=== PATIENT | female | born 1975 | race Caucasian/White ===

== ENCOUNTER → 2018-02-14 | Day surgery (SDC) | payer OTHER ==
[~2018-02-14] VITALS: Ht 157.5 cm; Wt 79.1 kg
[~2018-02-14] MED LIST: ACETAMINOPHEN 1000 MG/100 ML 100 ML IV ONE; ACETAMINOPHEN/HYDROcodone 325 MG/5 MG TAB PO PRN; ATOR10TA15 PO; BUPIVACAINE HCL PF 0.25% 30 ML VIAL ONE; CHLORHEXIDINE GLUCONATE 2 % 1 PACK (2 CLOTHS) TOPICAL PRN; DEXAMETHASONE SOD PHOS 4 MG/ML VIAL IV ONE; DO NOT ADM ANY ANTICOAGULANT DRUGS PRN; ESMOLOL HCL 100 MG/10 ML VIAL IV ONE; GENTAMICIN SULFATE 80 MG/2 ML VIAL ONE; KETOROLAC TROMETHAMINE 30 MG/ML (IVP) VIAL IV PUSH ONE; LACTATED RINGER'S 1000 ML INJ 1,000 ML IV ONE; LACTATED RINGER'S 1000 ML IV PRN; LIDOCAINE HCL 0.5% PF 50 ML VIAL ONE; LIDOCAINE HCL 1% PF 5 ML SYRINGE OTHER ONE; METOPROLOL TARTRATE 25 MG TAB PO PRN; MIDAZOLAM HCL 2 MG/2 ML VIAL ONE; MORPHINE SULFATE 4 MG/ML INJ IV PUSH PRN; NORC5TAB PO; ONDANSETRON HCL 4 MG/2 ML VIAL IV ONE; ONDANSETRON ODT 4 MG TAB ONE; ONDANSETRON ODT 4 MG TAB SL ONE; POVIDONE IODINE 5% (ANTISEPSIS KIT) 4 APPLICATIONS EACH NARE PRN; POVIDONE IODINE 7.5% SCRUB 118 ML BOTTLE TOPICAL SCH; PROMETHAZINE INJ 25 MG/ML VIAL ONE; PROPOFOL 200 MG/20 ML AMP IV ONE; SODIUM CHLORID 0.9% 500 ML IV PRN; SODIUM CHLORIDE 0.9% FLUSH 10 ML FLUSH IV FLUSH PRN; SODIUM CHLORIDE 0.9% FLUSH 10 ML FLUSH IV FLUSH SCH; ceFAZolin 2 GM PREMIX 50 ML IV SCH; ePHEDrine/NS 25 MG/5 ML SYRINGE IV ONE
--- NOTE | 2018-02-14 10:58 | PD.OP ---
cc: Craig Addison MD Operative Report Date of Surgery: Feb 14, 2018 Preoperative Diagnosis: Left hand carpal tunnel syndrome Postoperative Diagnosis: Same Procedure: Left hand open carpal tunnel release Anesthesia: General Surgeon: Craig Addison Machine Operator Packaging(s): CRUZITO Dominguez The surgical procedure was assisted by my Advanced Registered Nurse Practitioner. My PIECE WORKER presence was necessary throughout this case for the manipulation and positioning of the surgical extremity. My PIECE WORKER was assisting me throughout the duration of this procedure. The skill set of an Advance Registered Nurse Practitioner was medically necessary to complete this procedure. During the surgical case, the surgical instrument maker was working at the back table and the Advance Registered Nurse Practitioner was directly assisting me. Operation and Findings: Tourniquet time: 4 minutes at 250 mmHg of pressure Estimated blood loss: 2 cc The patient received intravenous Ancef. After the appropriate anesthesia was administered, the patient's arm was prepped and draped in the usual sterile fashion. Local anesthetic was given without epinephrine, and the arm was exsanguinated. The tourniquet was raised to 250 mmHg of pressure. We made a standard incision over the volar aspect of the hand. We dissected through the palmar fascia exposing the deep transverse ligament. We incised the mid aspect of the ligament. We then used a Taylor elevator between the ligament and the median nerve to protect the nerve. We incised the remaining portion of the ligament proximally and then distally. The median nerve was inspected and found to be intact. The tourniquet was released and hemostasis was achieved. We irrigated the incision thoroughly. We then closed skin with 2-0 Vicryl followed by 3-0 nylon. The arm was dressed with a hand bundle. The postoperative plan is to start early range of motion of the wrist and fingers. Craig Addison MD Feb 14, 2018 10:57
[2018-02-14 12:33] VITALS: BP 125/78; PULSE 78; RESP 16; TEMP 98.5; O2SAT 96
== END | disposition home or self-care (01) ==
LOC: HSDC 06:39
PROVIDERS: ATTEND Orthopaedic Surgery
DX: G56.02 Carpal tunnel syndrome, left upper limb (principal); M75.52 Bursitis of left shoulder; M19.012 Primary osteoarthritis, left shoulder; F17.200 Nicotine dependence, unspecified, uncomplicated
CPT/HCPCS: 01810; 64721; J0131; J0690; J1100; J1580; J1885; J2250; J2405; J3010; J7120; J2550